=== PATIENT | male | born 1935 | race Caucasian/White ===

== ENCOUNTER 2018-02-27 00:17 | Observation (INO) | payer MEDICARE ==
[2018-02-27] VITALS (10 sets, daily range): BP systolic 99–145; BP diastolic 54–87; PULSE 60–75; RESP 15–20; TEMP 98.9–99.3; O2SAT 92–97
[~2018-02-27] VITALS: Ht 182.9 cm; Wt 97.7 kg
[~2018-02-27 00:17] MED LIST: AMAR2TAB PO; AMLO5TAB96 PO; DIOV320T PO; FERR324T4 PO; LEXA20TA PO; LORT5TAB PO; METO50TA PO; MEVA40TA6 PO; PACE200T4 PO; TAB-TAB PO; TEKT300T PO
--- NOTE | 2018-02-27 00:43 | PD ---
HPI Chief Complaint: General Weakness Time Seen by Provider: 00:37 Travel History International Travel<30 days: No Contact w/Intl Traveler<30days: No Traveled to known affect area: No History of Present Illness HPI 83-year-old male presents to the emergency department from home by EMS transport for evaluation of generalized weakness. Patient with extensive past medical history of generalized weakness frequent falls acute kidney injury renal cell carcinoma hypertension dyslipidemia thrombocytopenia atrial fibrillation diabetes sleep apnea anemia colonic polyps and aortic valve replacement. Patient's had no recent fever chills vomiting abdominal pain diarrhea chest pain shortness of breath flank pain dysuria frequency urgency or hematuria. In the past week patient has had 5 different falls and has hit his head at least 2-3 times. does not report any episodes of loss of consciousness. No new altered mentation. Patient was seen today by his primary care provider as a scheduled appointment to discuss patient's ongoing weakness and frequent falls. Primary care provider recommended patient be placed in assisted living facility. states they have not been able to arrange this as of yet. states she is his sole provider and caregiver and he is too large for her to move for pickup and just prior to arrival to the emergency department he had partially fallen off of the bed. Patient is taking no blood thinning agents. PFSH Past Medical History Narrative Medical Aortic valve replacement renal failure w/ HD (Dr Funes) renal cell carcinoma hypertension, cytopenia atrial fibrillation dyslipidemia diabetes obstructive sleep apnea anemia colonic polyps no tobacco use no alcohol use; appendectomy, partial colectomy; nursing notes reviewed Blood Disorders: No Cancer: Yes (RIGHT KIDNEY) Cardiovascular Problems: Yes High Cholesterol: Yes Chemotherapy: No Diabetes: Yes Endocrine: Yes Genitourinary: No Hypertension: Yes Immune Disorder: No Musculoskeletal: No Neurologic: No Psychiatric: No Reproductive: No Respiratory: Yes Radiation Therapy: No Sleep Apnea: Yes Past Surgical History Abdominal Surgery: Yes (APPY, PARTIAL COLECTOMY, HERNIA REP.) Appendectomy: Yes Genitourinary Surgery: Yes (RIGHT NEPHRECTOMY) Social History Alcohol Use: Yes (DAILY BEER) Tobacco Use: No Substance Use: No Allergies-Medications (Allergen,Severity, Reaction): Coded Allergies: amlodipine (Unverified Allergy, Intermediate, 07/10/17) atorvastatin (Unverified Allergy, Intermediate, 07/10/17) clonidine (Unverified Allergy, Intermediate, 07/10/17) diatrizoate meglumine (Unverified Allergy, Intermediate, 07/10/17) diltiazem (Unverified Allergy, Intermediate, 07/10/17) gadobenic acid (Unverified Allergy, Intermediate, 07/10/17) gadodiamide (Unverified Allergy, Intermediate, 07/10/17) gadoteridol (Unverified Allergy, Intermediate, 07/10/17) iodixanol (Unverified Allergy, Intermediate, 07/10/17) iohexol (Unverified Allergy, Intermediate, 07/10/17) isradipine (Unverified Allergy, Intermediate, 07/10/17) minoxidil (Unverified Allergy, Intermediate, 07/10/17) nicardipine (Unverified Allergy, Intermediate, 07/10/17) nifedipine (Unverified Allergy, Intermediate, 07/10/17) nimodipine (Unverified Allergy, Intermediate, 07/10/17) verapamil (Unverified Allergy, Intermediate, 07/10/17) metoclopramide (Unverified Adverse Reaction, Intermediate, Nausea/Vomiting , 07/10/17) Reported Meds & Prescriptions Reported Meds & Active Scripts Active Reported Lortab 5/500 (Acetaminophen/Hydrocodone Bitart) 5 Mg/500 Mg Tab 1-2 Tab PO Q6HPRN FOR PAIN Lopressor (Metoprolol Tartrate) 50 Mg Tab 50 Mg PO BID Ferrous Sulfate 325 Mg Tab 325 Mg PO BID TAKE WITH MEALS Pacerone (Amiodarone HCl) 200 Mg Tab 200 Mg PO DAILY Norvasc (Amlodipine Besylate) 5 Mg Tab 5 Mg PO HS Diovan (Valsartan) 320 Mg Tab 320 Mg PO HS Mevacor (Lovastatin) 40 Mg Tab 40 Mg PO HS Lexapro (Escitalopram Oxalate) 20 Mg Tab 20 Mg PO DAILY Amaryl (Glimepiride) 2 Mg Tab 2 Mg PO DAILY Tekturna (Aliskiren) 300 Mg Tab 300 Mg PO DAILY Multivitamin (Multivitamins) 1 Tab Tab 1 Tab PO DAILY Review of Systems Except as stated in HPI: all other systems reviewed are Neg Physical Exam Narrative GENERAL: Pleasant elderly male in no acute distress no respiratory distress, gcs 15 SKIN: Warm and dry. HEAD: Atraumatic. Normocephalic. Right forehead ecchymosis no scalp soft tissue swelling laceration abrasion or bony abnormality. EYES: Pupils equal and round. No scleral icterus. No injection or drainage. ENT: No nasal bleeding or discharge. Mucous membranes pink and moist. Airway is patent. Bilateral hearing aids. NECK: Trachea midline. No JVD. No midline tenderness to direct palpation along the cervical spine no bony step-off CARDIOVASCULAR: Regular rate and rhythm. RESPIRATORY: No accessory muscle use. Clear to auscultation. Breath sounds equal bilaterally. GASTROINTESTINAL: Abdomen soft, non-tender, nondistended. Hepatic and splenic margins not palpable. MUSCULOSKELETAL: Extremities without clubbing, cyanosis, or edema. No obvious deformities. NEUROLOGICAL: Awake and alert. No obvious cranial nerve deficits. Motor grossly within normal limits. Five out of 5 muscle strength in the arms and legs. Normal speech. PSYCHIATRIC: Appropriate mood and affect; insight and judgment normal. Data Data Last Documented VS Vital Signs Date Time Temp Pulse Resp B/P (MAP) Pulse Ox O2 Delivery O2 Flow Rate FiO2 02/27/18 03:08 69 16 99/54 (69) 95 Room Air 02/27/18 00:20 98.9 Orders Orders Electrocardiogram (02/27/18 00:37) Complete Blood Count With Diff (02/27/18 00:37) Comprehensive Metabolic Panel (02/27/18 00:37) Magnesium (Mg) (02/27/18 00:37) Ckmb (Isoenzyme) Profile (02/27/18 00:37) Troponin I (02/27/18 00:37) Act Partial Throm Time (Ptt) (02/27/18 00:37) Prothrombin Time / Inr (Pt) (02/27/18 00:37) Urinalysis - C+S If Indicated (02/27/18 00:37) Chest, Single Ap (02/27/18 00:37) Ct Brain W/O Iv Contrast(Rout) (02/27/18 00:37) Ct Cerv Spine W/O Contrast (02/27/18 00:37) Blood Glucose (02/27/18 00:37) Ecg Monitoring (02/27/18 00:37) Iv Access Insert/Monitor (02/27/18 00:37) Oximetry (02/27/18 00:37) Sodium Chloride 0.9% Flush (Ns Flush) (02/27/18 00:45) Sodium Chlor 0.9% 250 Ml Inj (Ns 250 Ml (02/27/18 03:30) Admit Order (Ed Use Only) (02/27/18 ) Paint Mixer Hand / Telemetry SHON.Q8H (02/27/18 03:34) Activity Bed Rest (02/27/18 03:34) Notify Dr: Other (02/27/18 03:34) Labs Laboratory Tests Test 02/27/18 01:19 02/27/18 01:20 02/27/18 02:40 Prothrombin Time 11.3 SEC Prothromb Time International Ratio 1.1 RATIO Activated Partial Thromboplast Time 25.5 SEC Blood Urea Nitrogen 51 MG/DL Creatinine 5.70 MG/DL Random Glucose 206 MG/DL Total Protein 7.0 GM/DL Albumin 3.1 GM/DL Calcium Level 8.6 MG/DL Magnesium Level 2.0 MG/DL Alkaline Phosphatase 75 U/L Aspartate Amino Transf (AST/SGOT) 24 U/L Alanine Aminotransferase (ALT/SGPT) 24 U/L Total Bilirubin 0.6 MG/DL Sodium Level 133 MEQ/L Potassium Level 4.0 MEQ/L Chloride Level 98 MEQ/L Carbon Dioxide Level 23.5 MEQ/L Anion Gap 12 MEQ/L Estimat Glomerular Filtration Rate 10 ML/MIN Total Creatine Kinase 44 U/L Troponin I 0.20 NG/ML Urine Collection Type CLEAN CATCH Urine Color YELLOW Urine Turbidity CLEAR Urine pH 7.5 Urine Specific [place] 1.015 Urine Protein 300 OR GREATER mg/dL Urine Glucose (UA) 500 mg/dL Urine Ketones NEG mg/dL Urine Occult Blood SMALL Urine Nitrite NEG Urine Bilirubin NEG Urine Urobilinogen 0.2 MG/DL Urine Leukocyte Esterase NEG Urine WBC 0-2 /hpf Urine Squamous Epithelial Cells 0-5 /hpf Urine Amorphous Sediment FEW Urine Mucus OCC /lpf Microscopic Urinalysis Comment CULT NOT INDICATED White Blood Count 13.0 TH/MM3 Red Blood Count 3.19 MIL/MM3 Hemoglobin 10.0 GM/DL Hematocrit 30.4 % Mean Corpuscular Volume 95.2 FL Mean Corpuscular Hemoglobin 31.4 PG Mean Corpuscular Hemoglobin Concent 33.0 % Red Cell Distribution Width 18.3 % Platelet Count 100 TH/MM3 Mean Platelet Volume 9.1 FL CBC Comment AUTO DIFF Differential Total Cells Counted 100 Neutrophils % (Manual) 81 % Band Neutrophils % 8 % Lymphocytes % 4 % Monocytes % 6 % Basophils % 1 % Neutrophils # (Manual) 11.6 TH/MM3 Platelet Estimate LOW Platelet Morphology Comment CLUMPED Red Cell Morphology Comment [facility] Medical Decision Making Medical Screen Exam Complete: Yes Emergency Medical Condition: Yes Medical Record Reviewed: Yes Interpretation(s) EKG normal sinus rhythm rate 72 left ventricular hypertrophy by voltage nonspecific ST depression laterally no acute ST elevation or injury pattern age- indeterminate septal QS V1 V2 Troponin I: 0.2, elevated; CK: 44, not elevated Last Impressions Head CT 02/27/1836 Signed Impressions: Service Date/Time: Tuesday, February 27, 2018 01:38 - CONCLUSION: No acute intracranial findings Teerll Harris MD Chest X-Ray 02/27/1836 Signed Impressions: Service Date/Time: Tuesday, February 27, 2018 00:43 - CONCLUSION: No acute disease. Terell Harris MD Cervical Spine CT 02/27/1836 Signed Impressions: Service Date/Time: Tuesday, February 27, 2018 01:38 - CONCLUSION: No acute bony injury in the cervical spine Terell Harris MD CBC & BMP Diagram 02/27/18 01:19 Total Protein 7.0, Albumin 3.1 L, Calcium Level 8.6, Magnesium Level 2.0, Alkaline Phosphatase 75, Aspartate Amino Transf (AST/SGOT) 24, Alanine Aminotransferase (ALT/SGPT) 24, Total Bilirubin 0.6 Vital Signs Date Time Temp Pulse Resp B/P (MAP) Pulse Ox O2 Delivery O2 Flow Rate FiO2 02/27/18 01:17 Room Air 02/27/18 01:16 16 95 Room Air 02/27/18 00:20 98.9 75 20 126/68 (87) 95 Urinalysis: Positive glucosuria and mild ketones culture not indicated Coagulation studies: Within normal range CBC is automated differential mild leukocytosis 13,000 with mild anemia hemoglobin of 10 and thrombocytopenia platelet count 100,000 Differential Diagnosis Generalized weakness, anemia, arrhythmia, dehydration, renal insufficiency, minor closed head injury Narrative Course Patient placed on side hemmer IV access obtained specimens collected and sent for resulting Physician Communication Physician Communication discussed with [facility] 10 am on m/w/ Diagnosis Primary Impression: Generalized weakness Additional Impressions: Elevated troponin Diabetes Renal failure, chronic Admitting Information Admitting Physician Requests: Admit Destiny Parson MD Feb 27, 2018 00:43
[2018-02-27] MEDS ORDERED: SODIUM CHLORIDE 0.9% FLUSH 10 ML FLUSH IVF PRN (00:45)
[2018-02-27 01:26] LABS: BILIRUBIN, URINE NEG (NEG); BLOOD, URINE SMALL (NEG); GLUCOSE,URINE 500 mg/dL (NEG); KETONE, URINE NEG (NEG); NITRITE,URINE NEG (NEG); PH, URINE 7.5 (5.0-8.5); URINE COLOR YELLOW (YELLW/STRAW); URINE LEUKOCYTE ESTERASE NEG (NEG)
--- NOTE | 2018-02-27 01:30 | RADRPT ---
EXAM DATE/TIME: 02/27/2018 00:43 [facility] COMPARISON: No previous studies available for comparison. INDICATIONS : Short of breath. MEDICAL HISTORY : None. SURGICAL HISTORY : CABG. ENCOUNTER: Initial ACUITY: 1 day PAIN SCORE: 0/10 LOCATION: Bilateral chest FINDINGS: A single view of the chest demonstrates the lungs to be symmetrically aerated without evidence of mas s, infiltrate or effusion. The cardiomediastinal contours are unremarkable. Sternotomy wires are pre sent CONCLUSION: No acute disease. Terell Harris MD on February 27, 2018 at 1:11 Board Certified Radiologist. This report was verified electronically.
[2018-02-27 01:36] LABS: CHLORIDE 98 MEQ/L (98-107); SODIUM (NA) 133 MEQ/L (136-145)
[2018-02-27 01:40] LABS: ALBUMIN 3.1 GM/DL (3.4-5.0); BICARBONATE 23.5 MEQ/L (21.0-32.0); BLOOD UREA NITROGEN 51 MG/DL (7-18); CALCIUM 8.6 MG/DL (8.5-10.1); GLUCOSE,RANDOM 206 MG/DL (74-106)
[2018-02-27 01:43] LABS: ALT (GPT) 24 U/L (12-78); AST (GOT) 24 U/L (15-37)
[2018-02-27 01:44] LABS: GLOMERULAR FILTRATION RATE 10 ML/MIN (>89)
[2018-02-27 01:45] LABS: TOTAL BILIRUBIN ADULT 0.6 MG/DL (0.2-1.0)
[2018-02-27 01:46] LABS: ALKALINE PHOSPHATASE 75 U/L (45-117)
[2018-02-27 02:12] LABS: SQUAMOUS EPITHELIAL CELL URINE 0-5 /hpf (0-5)
[2018-02-27 02:13] LABS: AMORPHOUS SEDIMENT, URINE FEW; MUCUS URINE OCC /lpf (OCC); WBC, URINE 0-2 /hpf (0-5)
--- NOTE | 2018-02-27 02:23 | RADRPT ---
EXAM DATE/TIME: 02/27/2018 01:38 [facility] COMPARISON: No previous studies available for comparison. INDICATIONS : General weakness. RADIATION DOSE: 62.55 CTDIvol (mGy) MEDICAL HISTORY : Cardiovascular disease. Diabetes mellitus type 2. Carcinoma, not otherwise specified. SURGICAL HISTORY : None. ENCOUNTER: Initial ACUITY: 1 day PAIN SCALE: 5/10 LOCATION: cranial TECHNIQUE: Multiple contiguous axial images were obtained of the head. Using automated exposure control and adj ustment of the mA and/or kV according to patient size, radiation dose was kept as low as reasonably a chievable to obtain optimal diagnostic quality images. DICOM format image data is available electro nically for review and comparison. FINDINGS: CEREBRUM: The ventricles are normal for age. No evidence of midline shift, mass lesion, hemorrhage or acute in farction. No extra-axial fluid collections are seen. POSTERIOR FOSSA: The cerebellum and brainstem are intact. The 4th ventricle is midline. The cerebellopontine angle i s unremarkable. EXTRACRANIAL: The visualized portion of the orbits is intact. SKULL: The calvaria is intact. No evidence of skull fracture. CONCLUSION: No acute intracranial findings Terell Harris MD on February 27, 2018 at 2:20 Board Certified Radiologist. This report was verified electronically.
--- NOTE | 2018-02-27 02:25 | RADRPT ---
EXAM DATE/TIME: 02/27/2018 01:38 [facility] COMPARISON: No previous studies available for comparison. INDICATIONS : General weakness. Fall. RADIATION DOSE: 26.58 CTDIvol (mGy) MEDICAL HISTORY : Diabetes mellitus type 2. Cardiovascular disease Carcinoma, not otherwise specified. SURGICAL HISTORY : None. ENCOUNTER: Initial ACUITY: 1 day PAIN SCALE: 5/10 LOCATION: neck TECHNIQUE: Volumetric scanning of the cervical spine was performed. Multiplanar reconstructions in the sagittal, coronal and oblique axial planes were performed. Using automated exposure control and adjustment o f the mA and/or kV according to patient size, radiation dose was kept as low as reasonably achievable to obtain optimal diagnostic quality images. DICOM format image data is available electronically f or review and comparison. FINDINGS: Cervical spine alignment is satisfactory. There is no evidence of cervical spine fracture. No signifi cant bony canal or foraminal compromise is noted. There is prominent generative change present throug hout with disc space narrowing most significantly at C5-6 and C6-7 and prominent bilaterally ventral endplate osteophytes at these levels. Mild posterior facet arthropathy throughout her at there is no evidence of paraspinal mass or hematoma. CONCLUSION: No acute bony injury in the cervical spine Terell Harris MD on February 27, 2018 at 2:21 Board Certified Radiologist. This report was verified electronically.
[2018-02-27 02:28] LABS: INTERNATIONAL NORMALIZED RATIO 1.1 RATIO; PROTHROMBIN TIME - PATIENT 11.3 SEC (9.8-11.6)
[2018-02-27 02:52] LABS: HEMATOCRIT 30.4 % (39.0-51.0); MEAN CELL VOLUME 95.2 FL (80.0-100.0); MEAN CORPUSCULAR HEMOGLOBIN 31.4 PG (27.0-34.0); MEAN PLATELET VOLUME 9.1 FL (7.0-11.0); PLATELET COUNT 100 TH/MM3 (150-450); RED BLOOD COUNT 3.19 MIL/MM3 (4.50-5.90); RED CELL DISTRIBUTION WIDTH 18.3 % (11.6-17.2)
[2018-02-27 03:20] LABS: BANDS 8 % (0-6); BASOPHILS 1 % (0-2); LYMPHOCYTES 4 % (9-44); MONOCYTES 6 % (0-8); NEUTROPHIL # MANUAL DIFF 11.6 TH/MM3 (1.8-7.7); POLYS (SEG NEUTROPHILS) 81 % (16-70)
[2018-02-27] MEDS ORDERED: SODIUM CHLOR 0.9% 250 ML INJ 250 ML IV ONE (03:30)
[2018-02-27] MEDS ORDERED: ACETAMINOPHEN 325 MG TAB PO PRN ×2 (03:45→10:15)
[2018-02-27] MEDS ORDERED: NALOXONE HCL 0.4 MG/ML AMP IV PUSH PRN (03:45)
--- NOTE | 2018-02-27 07:41 | EKG ---
Date Performed: 02/27/2018 Time Performed: 00:54:35 PTAGE: 83 years EKG: Sinus rhythm LEFT VENTRICULAR HYPERTROPHY AND ST-T CHANGE POSSIBLE SEPTAL MYOCARDIAL INFARCTION ABNORMAL ECG PREVIOUS TRACING : 06/07/2010 21.37 DOCTOR: Javan Dixon Interpretating Date/Time 02/27/2018 07:40:18
[2018-02-27] MEDS ORDERED: SODIUM CHLOR 0.9% 1000 ML INJ 1,000 ML OTHER PRN ×2 (10:10)
[2018-02-27] MEDS ORDERED: SODIUM CHLOR 0.9% 1000 ML INJ 1,000 ML IV PRN (10:10)
[2018-02-27] MEDS ORDERED: CALC1CAP PO (10:11)
[2018-02-27] MEDS ORDERED: ATOR40TA16 PO (10:12)
[2018-02-27] MEDS ORDERED: FURO40TA PO (10:13)
[2018-02-27] MEDS ORDERED: LOSA100T PO (10:14)
[2018-02-27] MEDS ORDERED: cloNIDine HCL 0.1 MG TAB PO PRN (10:15)
[2018-02-27] MEDS ORDERED: HEPARIN SODIUM - IV 10,000 UNITS/10 ML VIAL IV FLUSH PRN (10:15)
[2018-02-27] MEDS ORDERED: GENTAMICIN SULFATE 20 MG/2 ML VIAL OTHER PRN (10:15)
[2018-02-27] MEDS ORDERED: SODIUM CHLORIDE 0.9% FLUSH 10 ML FLUSH IV FLUSH PRN (10:15)
[2018-02-27] MEDS ORDERED: diphenhydrAMINE HCL 25 MG CAP PO PRN (10:15)
[2018-02-27] MEDS ORDERED: NITROGLYCERIN 0.4 MG SL 25 TABS/BTL SL PRN (10:15)
[2018-02-27] MEDS ORDERED: ONDANSETRON HCL 4 MG/2 ML VIAL IV PUSH PRN (10:15)
[2018-02-27] MEDS ORDERED: HEPARIN SODIUM - IV 10,000 UNITS/10 ML VIAL PRN (10:15)
[2018-02-27] MEDS ORDERED: EPOETIN ALFA 10,000 UNITS/ML VIAL IV PUSH PRN (10:15)
[2018-02-27] MEDS ORDERED: SERT-132 PO (10:15)
[2018-02-27] MEDS ORDERED: MANNITOL 12.5 GM/50 ML VIAL IV PRN (10:15)
[2018-02-27] MEDS ORDERED: ALBUMIN 25% INJ 100 ML IV PRN (10:15)
[2018-02-27] MEDS ORDERED: GELATIN 12 MM/7 MM FOAM TOP PRN (10:15)
[2018-02-27] MEDS ORDERED: DEXTROSE 50% IN WATER 50 ML VIAL(D50) IV PUSH PRN (10:45)
[2018-02-27] MEDS ORDERED: amLODIPine BESYLATE 5 MG TAB PO SCH (10:45)
[2018-02-27] MEDS ORDERED: LOSARTAN 50 MG TAB PO SCH (10:45)
[2018-02-27] MEDS ORDERED: GLUCAGON 1 MG/ML VIAL OTHER PRN (10:45)
--- NOTE | 2018-02-27 11:32 | MH ---
cc: Jacklyn Looney MD DATE OF ADMISSION: 02/27/2018 ADMITTING DIAGNOSIS: Generalized weakness, falls. HISTORY OF PRESENT ILLNESS: Mr. Wan is a very pleasant 83-year-old gentleman who was brought to the emergency room by his after concerns regarding frequent falls at home, an almost fall the night that she brought him in and the ability for her to help him safely. The gentleman states that last fall he started dialysis and he actually was hospitalized in October in [facility]. He came out of there, he did rehabilitation. He says he was doing relatively well for him until 6 weeks ago. He said his main issue was that he was extremely fatigued the days of dialysis, but he says gradually over the last 6 weeks, he has just been having more and more issues with balance. It is nothing really specific. He does not describe any numbness, weakness, tingling. It did happen suddenly overnight. It is just simply that he is losing his balance more frequently and sustaining falls. Unfortunately, his is having great difficulty lifting him from the floor when he falls. They have had to call the fire department several times to pick him up. Finally it looks like yesterday he went to see his primary care physician and they were going to make arrangements for either therapy or rehab. Last night he had partially fallen out of bed just prior to coming to the emergency room. He really has no complaints of anything else. PAST MEDICAL HISTORY: Includes end-stage renal disease. He is on dialysis. He gets dialysis Mondays, Wednesdays, and Fridays. He has an aortic valve replacement. It is a bovine valve. It was done approximately 10 years ago. He has type 2 diabetes. He has a prior history of renal cell cancer. He says it was not really the kidney that had cancer, it was something attached to the kidney. History of hypertension, hyperlipidemia and sleep apnea. PAST SURGICAL HISTORY: Includes atrial valve replacement with a bovine valve as stated. PAST SURGICAL HISTORY: He has had an appendectomy. He has had a right nephrectomy and a partial colectomy. He has had an umbilical hernia repair and he had a left arm AV fistula placement last fall. ALLERGIES: HE IS ALLERGIC TO SULFA. MEDICATIONS: His medications at home include: amlodipine 2.5 mg, atorvastatin 40 mg daily, calcium acetate 667 two tablets 3 times a day, furosemide 40 mg daily. He says he takes glimepiride twice a day 2 mg in the morning and 4 mg at bedtime. Losartan 100 mg daily. He is on Procrit for anemia of renal disease. He is on Sertraline 50 mg daily. HABITS: He says he used to drink 2-3 beers a night until last September when he went on dialysis. He used to smoke. These were primarily cigars. He never smoked cigarettes. SOCIAL HISTORY: He is to his for 59 years. They live in [place]. 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 REVIEW OF SYSTEMS: He denies any chest pain, shortness of breath, cough, palpitations, fevers, abdominal pain. He states his appetite has been good. He has had good bowel movements. His urine production, though there, is limited. He denies any lower extremity pain or swelling. PHYSICAL EXAM: VITAL SIGNS: Temperature 98.9, pulse 66, respirations 18, blood pressure is 125/65, pulse oximetry is 97%. Of note, when he presented to the emergency room, his blood pressure was 99/54 and he was given a small bolus of IV fluids by the ER doctor. GENERAL: He is alert and oriented, conversant, lying in the hospital bed. He does not appear to be in any acute distress. HEENT: Normocephalic, atraumatic. EOM is intact. He has got hearing aids in both ears. He has got a very dry oral mucosa. NECK: Supple. LUNGS: Clear to auscultation bilaterally. HEART: Regular. I hear no ectopy. ABDOMEN: Globose. He has healed surgical incisions. EXTREMITIES: Show no clubbing, cyanosis or edema. He does have some areas of ecchymosis, one over his forehead and some on his arms. LABORATORY DATA: Lab work that was done when he came in showed a white count of 13, hemoglobin of 10, hematocrit of 30.4, platelet count of 100. Sodium was 133, potassium was 4, BUN was 51, creatinine was 5.7, random glucose was 206. Troponin was 0.2, albumin was 3.1. PT was 11.3, INR was 1.1, PTT was 25.5. Urine showed 300 or greater protein. He had some glucose small occult blood. CT scan of the brain showed no acute intracranial findings. Chest x-ray showed no acute disease. Cervical spine showed no acute bony injury to the cervical spine. EKG showed left ventricular hypertrophy and ST changes, possible septal myocardial infarction. ASSESSMENT AND PLAN: An 82-year-old gentleman presenting to the emergency room with increased fatigue and weakness with gait instability. At this point, he has had recurrent falls at home and is requiring rehabilitation. He is also on dialysis which has been started within the last 6 months. I asked him whether or not he found that his weakness was worse or his gait imbalance problems were worse on dialysis days. I have had patients whose blood pressure will be much lower and his blood pressure was low when he came in. At this point, I am going to hold his antihypertensive medications and monitor him and see how he does with dialysis. I have asked physical therapy to see him. He may be a candidate for rehabilitation. We will continue on his dialysis diet and on his medications for his diabetes. I will be checking his sugars. Further recommendations as the case develops. Jacklyn Looney MD MAURISIO/DL , 10:58 AM , 11:31 AM
[2018-02-27] MEDS: SERTRALINE HCL 50 MG TAB PO SCH (11:37)
[2018-02-27] MEDS: FUROSEMIDE 40 MG TAB PO SCH (11:38)
[2018-02-27] MEDS: GLIMEPIRIDE 2 MG TAB PO SCH (11:38)
[2018-02-27] MEDS: CALCIUM ACETATE 667 MG CAP PO SCH ×2 (11:38→18:24)
[2018-02-27] MEDS ORDERED: ATORVASTATIN 40 MG TAB PO SCH (21:00)
[2018-02-28] VITALS: BP 109/65; PULSE 63; RESP 20; TEMP 99.5; O2SAT 95
[2018-02-28 06:49] LABS: AUTOMATED NEUTROPHIL # 11.6 TH/MM3 (1.8-7.7); BASOPHIL % 0.1 % (0.0-2.0); EOSINOPHIL % 0.3 % (0.0-4.0); HEMATOCRIT 33.9 % (39.0-51.0); HEMOGLOBIN 11.4 GM/DL (13.0-17.0); LYMPH % 6.3 % (9.0-44.0); LYMPHOCYTE # 0.8 TH/MM3 (1.0-4.8); MEAN CELL VOLUME 95.1 FL (80.0-100.0); MEAN CORPUSCULAR HEMOGLOBIN 32.1 PG (27.0-34.0); MEAN CORPUSCULAR HGB CONC 33.7 % (32.0-36.0); MEAN PLATELET VOLUME 9.6 FL (7.0-11.0); MONO % 7.5 % (0.0-8.0); NEUT % 85.8 % (16.0-70.0); PLATELET COUNT 102 TH/MM3 (150-450); RED BLOOD COUNT 3.56 MIL/MM3 (4.50-5.90); RED CELL DISTRIBUTION WIDTH 18.3 % (11.6-17.2); WHITE BLOOD COUNT 13.4 TH/MM3 (4.0-11.0)
[2018-02-28 06:56] LABS: CHLORIDE 95 MEQ/L (98-107); SODIUM (NA) 135 MEQ/L (136-145)
[2018-02-28 07:02] LABS: CALCIUM 9.1 MG/DL (8.5-10.1); GLUCOSE,RANDOM 134 MG/DL (74-106)
[2018-02-28 07:06] LABS: ALT (GPT) 23 U/L (12-78); AST (GOT) 25 U/L (15-37); BLOOD UREA NITROGEN 38 MG/DL (7-18); GLOMERULAR FILTRATION RATE 12 ML/MIN (>89)
[2018-02-28 07:07] LABS: TOTAL BILIRUBIN ADULT 0.8 MG/DL (0.2-1.0); TOTAL PROTEIN 7.4 GM/DL (6.4-8.2)
[2018-02-28 07:09] LABS: ALKALINE PHOSPHATASE 76 U/L (45-117)
[2018-02-28 08:00] VITALS: BP 94/50; PULSE 90; RESP 16; TEMP 98.1; O2SAT 92
[2018-02-28] MEDS: FUROSEMIDE 40 MG TAB PO SCH (08:57)
[2018-02-28] MEDS: SERTRALINE HCL 50 MG TAB PO SCH (08:57)
[2018-02-28] MEDS: CALCIUM ACETATE 667 MG CAP PO SCH ×2 (08:57→12:32)
[2018-02-28] MEDS: GLIMEPIRIDE 2 MG TAB PO SCH (08:57)
--- NOTE | 2018-02-28 09:30 | MB ---
cc: Alice Funes MD DATE: 02/27/2018 REASON FOR CONSULTATION: End stage renal disease on hemodialysis for management. HISTORY OF PRESENT ILLNESS: This is an 83-year-old male known to me from before with past medical history of hypertension, diabetes mellitus, ischemic heart disease, end stage renal disease, on hemodialysis 3 times per week, history of renal cell carcinoma with nephrectomy, was admitted because of recurrent fall and generalized weakness. I was called to see the patient for the management of dialysis. He has been on hemodialysis Sunday, Sunday, Sunday. He goes to [facility] in [facility]. The patient has been getting dialysis through the left arm AV fistula. He fell down at home about a week ago and refused to seek any medical attention at that time. According to the patient, he has been feeling dizzy off and on and he fell down again yesterday and came to the hospital. He has an issue with controlling the balance, occasionally feeling dizzy, but not all the time. He was going to get water from the refrigerator when he tripped and he fell in the kitchen. He denies any loss of consciousness. He does not have any chest pain. No shortness of breath, no palpitation, no nausea or vomiting. PAST MEDICAL HISTORY: Hypertension, diabetes mellitus, ischemic heart disease, end-stage renal disease, on hemodialysis, history of renal cell carcinoma. PAST SURGICAL HISTORY: Nephrectomy, left AV fistula surgery, aortic valve replacement, appendicectomy, partial colectomy, umbilical hernia repair. REVIEW OF SYSTEMS: The patient denies any history of fever, no sore throat. No headache, dizziness or blurring of vision. He has general weakness and has been falling down. He has a problem controlling the balance, occasionally feels dizzy. There is no nausea, vomiting. No history of diarrhea, no loss of consciousness. No chest pain. No palpitation. SOCIAL HISTORY: The patient is and lives with his . He has past history of smoking, occasionally drinks beer. ALLERGIES: HE HAS A LONG LIST OF ALLERGIES INCLUDING AMLODIPINE, ATORVASTATIN, CLONIDINE, DIATRIZOATE, DILTIAZEM, GADOLINIUM, MINOXIDIL, NICARDIPINE, NIFEDIPINE, VERAPAMIL, METOCLOPRAMIDE. MEDICATIONS: Currently, he is on the following medications, Lasix 40 mg once a day, Amaryl 2 mg once a day, Zoloft 50 mg daily, Lipitor 40 mg at bedtime, PhosLo 667 mg t.i.d. PHYSICAL EXAMINATION: GENERAL: The patient was awake, alert. He was seen while been doing the dialysis. VITAL SIGNS: His last blood pressure is 145/87, he has one reading of 99/54, temperature is 99.3, oxygen saturation on room air is 97%. HEENT: Pupils are mid-constricted, nonicteric sclerae. . NECK: Supple. JVD not elevated. LUNGS: Patient has bilateral good air entry wheezing. HEART: S1, S2. Regular rhythm. ABDOMEN: Soft, lax. There is no tenderness. Bowel sounds positive. EXTREMITIES: He has mild edema. LABORATORY INVESTIGATIONS: WBC count is 13.0, hemoglobin 10.0, platelet count of 100. Sodium 133, potassium 4.0, chloride 98, bicarbonate 23.5, BUN 51, creatinine 5.7, calcium is 8.6, magnesium 2.0, AST/ALT normal. Troponin I is 0.2. Albumin is 3.1, total protein 7.0. INR is 1.1. Urinalysis showing protein of 300. IMAGING STUDY: The patient had a CT scan of the brain done, which shows that he has no acute intracranial lesion. Chest x-ray was done, which shows lung ordoñez clear. Cervical spine CT was done, which shows no acute bony injury in the cervical spine. ASSESSMENT AND PLAN: 1. Generalized weakness and recurrent fall. 2. End-stage renal disease, on hemodialysis. 3. Hypertension. 4. Ischemic heart disease and post-aortic valve replacement. 5. Mild anemia. 6. Diabetes mellitus. The patient has stable blood pressure. Need to find out if he has any orthostatic drop in the blood pressure. Could be autonomic neuropathy. His antihypertensive medications are on hold now and his blood pressure seems to be stable. The patient will need to go to the rehab for some time. When I saw him, he was getting dialysis and we were removing 3 liters from him. So far during dialysis up to the [facility]dc, there was no drop in the blood pressure. Epogen to be given with the dialysis. Thank you for the consultation. I will follow the patient while he is in the hospital. MD VY Beckwith/REA , 05:54 PM , 06:27 PM MTDD
--- NOTE | 2018-02-28 10:52 | HHI.PR ---
Subjective Remarks No complaints, eating, no cough or abdominal pain, good BM Objective Vitals Vital Signs Date Time Temp Pulse Resp B/P (MAP) Pulse Ox O2 Delivery O2 Flow Rate FiO2 02/28/18 08:00 98.1 90 16 94/50 (65) 92 02/28/18 00:00 99.5 63 20 109/65 (80) 95 02/27/18 20:50 95 21 02/27/18 20:00 99.3 67 20 107/62 (77) 92 02/27/18 16:26 99.3 02/27/18 12:33 99.3 68 15 145/87 (106) 97 02/27/18 12:00 97 21 02/28/18 02/28/18 03/01/18 15:00 23:00 07:00 Intake Total 0 ml Output Total 200 ml Balance -200 ml Intake Oral 0 ml Output Urine Total 200 ml # Bowel Movements 0 Result Diagram: 02/28/18 0450 02/28/18 045 Imaging Last Impressions Head CT 02/27/1836 Signed Impressions: Service Date/Time: Tuesday, February 27, 2018 01:38 - CONCLUSION: No acute intracranial findings Terell Harris MD Chest X-Ray 02/27/1836 Signed Impressions: Service Date/Time: Tuesday, February 27, 2018 00:43 - CONCLUSION: No acute disease. Terell Harris MD Cervical Spine CT 02/27/1836 Signed Impressions: Service Date/Time: Tuesday, February 27, 2018 01:38 - CONCLUSION: No acute bony injury in the cervical spine Terell Harris MD Objective Remarks Lying in bed alert ox3 lungs cta heart rrr Good bowel sounds AV fistula left arm with bruit A/P Problem List: (1) Generalized weakness ICD Codes: R53.1 - Weakness Status: Acute Plan: continue with PT. His blood pressure is on the low side even holding his blood pressure medications. Had fluid bolus in the ER when he came in. Will do orthostatics today. May need less fluid removed with dialysis. May be cause of his weaknes (2) Diabetes ICD Codes: E11.9 - Type 2 diabetes mellitus without complications Status: Acute Plan: on glimeperide at home cont with sliding scale for coverage (3) Renal failure, chronic ICD Codes: N18.9 - Chronic kidney disease, unspecified Status: Chronic Plan: received dialysis yesterday, had pricrit with his dialysis (4) Elevated troponin ICD Codes: R74.8 - Abnormal levels of other serum enzymes Status: Acute Plan: no cardiac complaints had cardiac , given renal failure unreliable indicator of cardiac insult Problem Qualifiers (1) Diabetes: Jacklyn Looney MD Feb 28, 2018 10:52
--- NOTE | 2018-02-28 11:40 | HHI.NPPN ---
Subjective History of Present Illness 83-year-old male known to me from before with past medical history of hypertension, diabetes mellitus, ischemic heart disease, end stage renal disease, on hemodialysis 3 times per week, history of renal cell carcinoma with nephrectomy, was admitted because of recurrent fall and generalized weakness. I was called to see the patient for the management of dialysis. Additional Remarks Patient is alert, feeling weak and tired, no SOB. Objective Data Data 02/28/18 03/01/18 19:00 07:00 Intake Total 0 ml Output Total 200 ml Balance -200 ml Intake Oral 0 ml Output Urine Total 200 ml # Bowel Movements 0 Vital Signs Date Time Temp Pulse Resp B/P (MAP) Pulse Ox O2 Delivery O2 Flow Rate FiO2 02/28/18 08:00 98.1 90 16 94/50 (65) 92 02/28/18 00:00 99.5 63 20 109/65 (80) 95 02/27/18 20:50 95 21 02/27/18 20:00 99.3 67 20 107/62 (77) 92 02/27/18 16:26 99.3 02/27/18 12:33 99.3 68 15 145/87 (106) 97 02/27/18 12:00 97 21 -: 02/28/18 0450 02/28/18 0450 Physical Exam General Appearance: No Acute Distress, Comfortable, Anxious Eyes Eye Exam: Pupils Equal Throat Throat Exam: Oral Mucosa [place] & Moist Neck Neck Exam: Neck Supple Pulmonary Resp Exam: Breath Sounds Equal, No Distress, Rhonchi, Decreased Bases Cardiology CV Exam: Regular, Normal Sinus Rhythm Gastrointestinal/Abdomen GI Exam: Soft, Non-Tender, Bowel Sounds Present, Non-Distended Extremeties Extremities Exam: Trace Edema Neurologic Neuro Exam: Alert, Awake, Oriented Psychiatric Psych Exam: Appropriate Responses Assessment/Plan Assessment Summary: Anemia of CKD, CHF, Hypertension, End Stage Renal Disease Problem List: (1) End stage chronic kidney disease ICD Codes: N18.6 - End stage renal disease (2) Recurrent falls ICD Codes: R29.6 - Repeated falls (3) Generalized weakness ICD Codes: R53.1 - Weakness Status: Acute (4) Diabetes ICD Codes: E11.9 - Type 2 diabetes mellitus without complications Status: Acute Plan Patient has been on HD, Mon., Wed. and Fri. HD was done yesterday. Has been feeling weak, and came with recurrent fall. BP drop on standing. I will D/C Lasix , add Midodrine. Problem Qualifiers (1) Diabetes: Edison Funes MD Feb 28, 2018 11:40
[2018-02-28 11:57] VITALS: BP 86/60; PULSE 78; RESP 16; O2SAT 94
[2018-02-28 11:59] VITALS: BP 108/57; PULSE 74; RESP 15; O2SAT 93
[2018-02-28 12:00] VITALS: BP 88/51; PULSE 79; RESP 16; TEMP 98.1; O2SAT 93
[2018-02-28] MEDS ORDERED: MIDODRINE 5 MG TAB PO SCH (12:00)
[2018-02-28] MEDS ORDERED: AMAR2TAB PO (12:53)
[2018-02-28] MEDS ORDERED: MIDO5TAB PO (12:53)
[2018-02-28] MEDS ORDERED: ACET325T15 PO (12:53)
== END 2018-02-28 17:06 ==
LOC: PHED 00:17 → PHEDA 03:35 → PH3A 05:03
PROVIDERS: ADMIT Legal Medicine; ATTEND Legal Medicine
DX: R53.83 Other fatigue (principal); R53.1 Weakness; R26.89 Other abnormalities of gait and mobility; R29.6 Repeated falls; R06.02 Shortness of breath; R94.31 Abnormal electrocardiogram [ECG] [EKG]; R74.8 Abnormal levels of other serum enzymes; I13.2 Hypertensive heart and chronic kidney disease with heart failure and with stage 5 chronic kidney disease, or end stage renal disease; I50.9 Heart failure, unspecified; E11.22 Type 2 diabetes mellitus with diabetic chronic kidney disease; N18.6 End stage renal disease; D63.1 Anemia in chronic kidney disease; E78.00 Pure hypercholesterolemia, unspecified; G47.33 Obstructive sleep apnea (adult) (pediatric); Z87.891 Personal history of nicotine dependence; Z99.2 Dependence on renal dialysis; Z95.2 Presence of prosthetic heart valve; Z85.528 Personal history of other malignant neoplasm of kidney; Z79.899 Other long term (current) drug therapy; Z90.5 Acquired absence of kidney
CPT/HCPCS: 70450; 71045; 72125; 80053; 81001; 82550; 82948; 83735; 84484; 85007; 85025; 85027; 85610; 85730; 93005; 96360; 96374; 97162; 99285; G0257; G0378; G8987; G8988; J7050; Q4081; 90935